=== PATIENT | female | born 1960 | race Caucasian/White ===

== ENCOUNTER 2017-07-17 07:24 | Day surgery (SDC) | payer BC ==
[~2017-07-17] VITALS: Ht 162.6 cm; Wt 147.4 kg
[2017-07-17] MEDS ORDERED: KETOROLAC TROMETHAMINE 30 MG VIAL IVP ONE (10:34)
[2017-07-17] MEDS ORDERED: LR 1,000 ML IV.SOLN IV ONE (10:34)
[2017-07-17] MEDS ORDERED: PROPOFOL 200MG/ 20ML VIAL (DIPRIVAN) IV ONE (10:34)
[2017-07-17] MEDS ORDERED: SEVOFLURANE 15 MIN GAS INH ONE (10:34)
[2017-07-17] MEDS ORDERED: NS IRRIG SOLN 1000 ML IR ONE (10:34)
[2017-07-17] MEDS ORDERED: DEXAMETHASONE SOD PHOSPHATE 4 MG/ML VIAL IVP ONE (10:34)
[2017-07-17] MEDS ORDERED: fentaNYL CITRATE/PF 100 MCG/2 ML AMP IVP ONE (10:34)
[2017-07-17] MEDS ORDERED: LR 1,000 ML IV ONE (11:27)
[2017-07-17] MEDS ORDERED: NALOXONE HCL 0.4 MG/ML AMP (NARCAN) IVP PRN (11:30)
[2017-07-17] MEDS ORDERED: NALBUPHINE HCL 10 MG/ML AMP IVP PRN (11:30)
[2017-07-17] MEDS ORDERED: DIPHENHYDRAMINE INJ 50 MG/ML VIAL IVP PRN (11:30)
[2017-07-17] MEDS ORDERED: ONDANSETRON HCL 4 MG/2 ML VIAL IVP PRN ×3 (11:30→12:15)
[2017-07-17] MEDS ORDERED: fentaNYL CITRATE/PF 100 MCG/2 ML AMP IVP PRN (11:30)
[2017-07-17] MEDS ORDERED: ePHEDrine sulfate 50 MG/ML VIAL IVP PRN (11:30)
[2017-07-17] MEDS ORDERED: KETOROLAC TROMETHAMINE 30 MG VIAL IM PRN (11:30)
[2017-07-17] MEDS ORDERED: OXYCODONE/ACETAMINOPHEN 5-325 TABLET PO PRN ×2 (12:15)
[2017-07-17] MEDS ORDERED: IBUPROFEN 800 MG TABLET PO PRN (12:15)
[2017-07-17 13:23] VITALS: BP_SYST 149
== END 2017-07-17 14:10 | disposition home or self-care (01) ==
LOC: SDS 07:24 → SMU 07:25 → SDS 14:10
PROVIDERS: ATTEND Obstetrics & Gynecology
DX: N95.0 Postmenopausal bleeding (principal); E66.01 Morbid (severe) obesity due to excess calories; Z68.43 Body mass index [BMI] 50.0-59.9, adult; M17.0 Bilateral primary osteoarthritis of knee; E55.9 Vitamin D deficiency, unspecified; Z90.49 Acquired absence of other specified parts of digestive tract; Z98.890 Other specified postprocedural states; Z79.899 Other long term (current) drug therapy
CPT/HCPCS: 36415; 58120; 86886; 86900; 86901; J1100; J1885; J2704; J3010; J7120

== ENCOUNTER 2019-10-28 07:45 | Day surgery (SDC) | payer BC ==
[~2019-10-28] VITALS: Ht 162.6 cm; Wt 136.1 kg
[2019-10-28] MEDS ORDERED: MEPERIDINE HCL/PF 100 MG/ML AMP ONE (08:42)
[2019-10-28] MEDS ORDERED: GLYCOPYRROLATE 0.2 MG/ML VIAL ONE (08:43)
[2019-10-28] MEDS ORDERED: SIMETHICONE 40 MG/0.6 ML ML ONE (08:43)
[2019-10-28] MEDS ORDERED: MIDAZOLAM HCL 5 MG/5 ML VIAL ONE (09:33)
[2019-10-28] MEDS: MIDAZOLAM HCL 5 MG/5 ML VIAL ONE ×2 (09:50→09:52)
[2019-10-28 11:05] VITALS: BP_SYST 111
== END 2019-10-28 11:05 | disposition home or self-care (01) ==
LOC: SMU 07:45 → SDS 07:45
PROVIDERS: ATTEND Colon & Rectal Surgery
DX: R19.5 Other fecal abnormalities (principal); K57.30 Diverticulosis of large intestine without perforation or abscess without bleeding; K31.89 Other diseases of stomach and duodenum; G47.33 Obstructive sleep apnea (adult) (pediatric); M17.0 Bilateral primary osteoarthritis of knee; M54.16 Radiculopathy, lumbar region; Z85.3 Personal history of malignant neoplasm of breast; Z90.710 Acquired absence of both cervix and uterus; E66.01 Morbid (severe) obesity due to excess calories; Z68.43 Body mass index [BMI] 50.0-59.9, adult; Z90.49 Acquired absence of other specified parts of digestive tract; Z98.890 Other specified postprocedural states
CPT/HCPCS: 45378; G0378; J2175; J2250; J7030; J3490